=== PATIENT | male | born 1960 | race Caucasian/White ===

== ENCOUNTER → 2016-11-09 | Outpatient (CLI) | payer OTHER ==
[2016-11-09 10:12] LABS: ALT 40 U/L (21-72); AST 21 U/L (17-59); Alkaline Phosphatase 95 U/L (38-126); Anion Gap 9 mmol/L; Blood Urea Nitrogen 21 mg/dL (9-20); Calcium 9.6 mg/dL (8.4-10.2); Carbon Dioxide 27 mmol/L (22-30); Chloride 105 mmol/L (98-107); Cholesterol 182 mg/dL (<200); Glucose 169 mg/dL (74-99); HDL Cholesterol 65 mg/dL (40-60); Non-African American GFR(MDRD) >60 (>60 ml/min/1.73 sqM); Sodium 141 mmol/L (137-145); Total Bilirubin 1.3 mg/dL (0.2-1.3); Total Protein 6.8 g/dL (6.3-8.2); Triglycerides 55 mg/dL (<150)
[2016-11-09 11:29] LABS: Hemoglobin A1C 7.3 % (4.2-6.1)
== END | disposition home or self-care (01) ==
LOC: LABWHC1 09:25
PROVIDERS: ATTEND Internal Medicine Endocrinology, Diabetes & Metabolism
DX: E10.65 Type 1 diabetes mellitus with hyperglycemia (principal); E03.9 Hypothyroidism, unspecified
CPT/HCPCS: 36415; 80053; 80061; 82043; 83036; 84443

== ENCOUNTER → 2017-04-27 | Outpatient (CLI) | payer OTHER ==
[2017-04-27 10:32] LABS: ALT 51 U/L (21-72); AST 33 U/L (17-59); Cholesterol 169 mg/dL (<200); HDL Cholesterol 69 mg/dL (40-60); Triglycerides 51 mg/dL (<150)
== END | disposition home or self-care (01) ==
LOC: LABWHC1 08:48
PROVIDERS: ATTEND Family Medicine
DX: E78.2 Mixed hyperlipidemia (principal)
CPT/HCPCS: 36415; 80061; 84402; 84403; 84450; 84460

== ENCOUNTER → 2017-07-03 | Outpatient (CLI) | payer OTHER ==
[2017-07-03 12:47] LABS: CH 30.1; CHCM 33.9; HCT 44.1 % (39.0-53.0); HDW 2.76; HGB 14.5 gm/dL (13.0-17.5); MCH 29.5 pg (25.0-35.0); MCHC 32.9 g/dL (31.0-37.0); MCV 89.4 fL (80.0-100.0); Mean Platelet Volume 8.1; RBC 4.94 m/uL (4.30-5.90); RDW 14.7 % (11.5-15.5); WBC 7.6 k/uL (3.8-10.6)
[2017-07-03 12:58] LABS: Phosphorus 3.5 mg/dL (2.5-4.5)
[2017-07-03 23:07] LABS: Sex Hormone Binding Globulin 81.2 nmol/L (11.0-57.0); Testosterone, Bioavailable 144.2 ng/dL (60.8-409.9); Testosterone, Free 6.4 ng/dL (3.70-23.28)
== END | disposition home or self-care (01) ==
LOC: LABWHC1 11:35
PROVIDERS: ATTEND Family Medicine
DX: E29.1 Testicular hypofunction (principal)
CPT/HCPCS: 36415; 82040; 84075; 84100; 84270; 84403; 84450; 84460; 85027

== ENCOUNTER → 2017-07-19 | Outpatient (CLI) | payer OTHER ==
[2017-07-19 15:02] LABS: Hemoglobin A1C 7.2 % (4.2-6.1)
== END | disposition home or self-care (01) ==
LOC: LABWHC1 10:39
PROVIDERS: ATTEND Internal Medicine Endocrinology, Diabetes & Metabolism
DX: E10.65 Type 1 diabetes mellitus with hyperglycemia (principal)
CPT/HCPCS: 36415; 83036; 84443